=== PATIENT | female | born 2000 | race Caucasian/White ===

== ENCOUNTER → 2019-07-08 | Outpatient (CLI) | payer BC ==
--- NOTE | 2019-07-09 15:31 | MR ---
EXAMINATION TYPE: MR brain wo con DATE OF EXAM: 07/08/2019 COMPARISON: HISTORY: Headaches Standard multiplanar, multisequence MRI departmental protocol Multiplanar, multisequence images of the brain were acquired. Diffusion weighted imaging was performe d. FINDINGS: Ventricles and sulci appear normal. There is no mass effect nor midline shift. There is no sign of intracranial hemorrhage. Pichardo-white matter structures have normal signal pattern. There is no evidence of cerebral edema. Sella turcica appears normal. Brainstem is intact. Corpus callosum appea rs normal. There is no evidence of orbital mass. IMPRESSION: Negative MR scan of the brain.
== END | disposition home or self-care (01) ==
LOC: RADMRIMAIN 20:11
PROVIDERS: ATTEND Family Medicine
DX: R51 Headache (principal)
CPT/HCPCS: 70551

== ENCOUNTER 2023-08-01 16:59 | Observation (INO) | payer BC, OTHER ==
[2023-08-01] MEDS ORDERED: SODIUM CHLORIDE 0.9% 1,000 ML IV STA (17:27)
[2023-08-01] MEDS ORDERED: ONDANSETRON 4 MG/2 ML VIAL IVP STA (17:27)
[2023-08-01] MEDS ORDERED: KETOROLAC 15 MG/ML 1 ML VIAL IVP STA (17:27)
[2023-08-01 18:03] LABS: Basophils % (A) 0 %; Eosinophils # (A) 0.2 k/uL (0-0.7); Eosinophils % (A) 1 %; HCT 50.7 % (34.0-46.0); HGB 18.1 gm/dL (11.4-16.0); Lymphocytes # (A) 0.7 k/uL (1.0-4.8); Lymphocytes % (A) 5 %; MCH 34.6 pg (25.0-35.0); MCHC 35.6 g/dL (31.0-37.0); MCV 97.2 fL (80.0-100.0); Mean Platelet Volume 7.2; Monocytes # (A) 0.3 k/uL (0-1.0); Monocytes % (A) 2 %; Neutrophils # (A) 14.1 k/uL (1.3-7.7); Neutrophils % (A) 92 %; Platelet Count 278 k/uL (150-450); RBC 5.22 m/uL (3.80-5.40); RDW 14.7 % (11.5-15.5); WBC 15.4 k/uL (3.8-10.6)
[2023-08-01 18:13] LABS: ALT 117 U/L (4-34); AST 109 U/L (14-36); African American GFR (CKD) >90 (>60 ml/min/1.73 sqM); Albumin 4.4 g/dL (3.5-5.0); Alkaline Phosphatase 117 U/L (38-126); Amylase 52 U/L (30-110); Anion Gap 13 mmol/L; Blood Urea Nitrogen 7 mg/dL (7-17); Calcium 9.4 mg/dL (8.4-10.2); Carbon Dioxide 24 mmol/L (22-30); Chloride 102 mmol/L (98-107); Glucose 103 mg/dL (74-99); Lipase 44 U/L (23-300); Non-African American GFR(CKD) >90 (>60 ml/min/1.73 sqM); Potassium 4.1 mmol/L (3.5-5.1); Sodium 139 mmol/L (137-145); Total Bilirubin 1.2 mg/dL (0.2-1.3); Total Protein 7.7 g/dL (6.3-8.2)
--- NOTE | 2023-08-01 18:48 | ED ---
Abdominal Pain HPI - General Chief Complaint: Abdominal Pain Stated Complaint: Abd Pain Time Seen by Provider: 08/01/23 17:22 Source: patient Mode of arrival: ambulatory Limitations: no limitations - History of Present Illness Initial Comments: 23-year-old female presenting with chief complaint of abdominal pain. Patient had sudden onset sharp lower abdominal pain that started about an hour prior to arrival. She admits to nausea and has had one episode of vomiting. She denies any history of surgeries. No fever, chills, dysuria, hematuria, vaginal bleeding or discharge, flank pain, diarrhea, constipation. - Related Data Home Medications Medication Instructions Recorded Confirmed No Known Home Medications 08/01/23 08/01/23 Allergies Allergy/AdvReac Type Severity Reaction Status Date / Time Penicillins Allergy Rash/Hives Verified 08/01/23 21:46 Review of Systems ROS Statement: Those systems with pertinent positive or pertinent negative responses have been documented in the HPI. ROS Other: All systems not noted in ROS Statement are negative. Past Medical History Past Medical History: No Reported History History of Any Multi-Drug Resistant Organisms: None Reported Past Surgical History: Adenoidectomy Additional Past Surgical History / Comment(s): wisdom teeth Past Psychological History: No Psychological Hx Reported, Anxiety, Depression Smoking Status: Never smoker Past Alcohol Use History: Occasional Past Drug Use History: Marijuana - Past Family History Father History Unknown: Yes Mother Family Medical History: Hypertension Additional Family Medical History / Comment(s): Thyroid disease General Exam Limitations: no limitations General appearance: alert, in no apparent distress Head exam: Present: atraumatic, normocephalic, normal inspection Eye exam: Present: normal appearance, EOMI Neck exam: Present: normal inspection, full ROM Respiratory exam: Present: normal lung sounds bilaterally. Absent: respiratory distress, wheezes, rales, rhonchi, stridor Cardiovascular Exam: Present: regular rate, normal rhythm, normal heart sounds. Absent: systolic murmur, diastolic murmur, rubs, gallop, clicks GI/Abdominal exam: Present: soft, tenderness. Absent: distended, guarding, rebound, rigid Neurological exam: Present: alert, oriented X3 Psychiatric exam: Present: normal affect, normal mood Skin exam: Present: warm, dry, intact, normal color. Absent: rash Course Vital Signs 08/01/23 08/01/23 08/01/23 17:07 18:48 21:14 Temperature 98.6 F Pulse Rate 92 95 82 Respiratory 18 18 18 Rate Blood Pressure 131/88 129/78 111/73 O2 Sat by Pulse 100 98 97 Oximetry Medical Decision Making - Medical Decision Making Was pt. sent in by a medical professional or institution (HUANG Akbar, INSTRUCTOR DECORATING, urgent care, hospital, or care home...) When possible be specific @ -No Did you speak to anyone other than the patient for history (EMS, parent, family, police, friend...)? What history was obtained from this source @ -No Did you review nursing and triage notes (agree or disagree)? Why? @ -I reviewed and agree with nursing and triage notes Were old charts reviewed (outside hosp., previous admission, EMS record, old EKG, old radiological studies, urgent care reports/EKG's, care home records)? Report findings @ -No old charts were reviewed Differential Diagnosis (chest pain, altered mental status, abdominal pain women, abdominal pain men, vaginal bleeding, weakness, fever, dyspnea, syncope, headache, dizziness, GI bleed, back pain, seizure, CVA, palpatations, mental health, musculoskeletal)? @ -MDM Differential Abdominal Pain Women: Appendicitis, Cholecystitis, diverticulosis, ischemic bowel, pancreatitis, hepatitis, UTI, gastroenteritis, AAA, incarcerated hernia, bowel obstruction, constipation, inflammatory bowel, hepatitis, peptic ulcer disease, splenic infarction, perforated viscus, vulvitis, ovarian torsion, PID, kidney stone, placenta abruption... This is not meant to be an all-inclusive list EKG interpreted by me (3pts min.). @ -As above X-rays interpreted by me (1pt min.). @ -None done CT interpreted by me (1pt min.). @ -Findings consistent with acute appendicitis. No evidence of abscess formation. Cholelithiasis. U/S interpreted by me (1pt. min.). @ -None done What testing was considered but not performed or refused? (CT, X-rays, U/S, labs)? Why? @ -None What meds were considered but not given or refused? Why? @ -None Did you discuss the management of the patient with other professionals (professionals i.e. , HUANG, INSTRUCTOR DECORATING, lab, RT, psych nurse, certified social workers in health care, suppression crew leader, teacher, submarine advisory team watch officer, correctional casework specialist)? Give summary @ -I received a call from Dr. Mercer about this patient, he accepted admission Was smoking cessation discussed for >3mins.? @ -No Was critical care preformed (if so, how long)? @ -No Were there social determinants of health that impacted care today? How? (Homelessness, low income, unemployed, alcoholism, drug addiction, transportation, low edu. Level, literacy, decrease access to med. care, snf, rehab)? @ -No Was there de-escalation of care discussed even if they declined (Discuss DNR or withdrawal of care, Hospice)? DNR status @ -No What co-morbidities impacted this encounter? (DM, HTN, Smoking, COPD, CAD, Cancer, CVA, ARF, Chemo, Hep., AIDS, mental health diagnosis, sleep apnea, morbid obesity)? @ -None Was patient admitted / discharged? Hospital course, mention meds given and route, prescriptions, significant lab abnormalities, going to OR and other pertinent info. @ -23-year-old female presented with chief complaint of lower abdominal pain and vomiting that started today. On physical exam there is right lower quadrant tenderness. WBC 15.4. Lactic 2.1. CT positive for appendicitis. Patient is started on metronidazole and levofloxacin secondary to penicillin ALLERGY. Patient was educated on today's findings and treatment plan. She is admitted to surgery. She is agreeable to this plan. I discussed this case with my attending Dr. Tong Undiagnosed new problem with uncertain prognosis? @ -No Drug Therapy requiring intensive monitoring for toxicity (Heparin, Nitro, Insulin, Cardizem)? @ -No Were any procedures done? @ -No Diagnosis/symptom? @ -Acute appendicitis Acute, or Chronic, or Acute on Chronic? @ -Acute Uncomplicated (without systemic symptoms) or Complicated (systemic symptoms)? @ -Complicated Side effects of treatment? @ -No Exacerbation, Progression, or Severe Exacerbation? @ -No Poses a threat to life or bodily function? How? (Chest pain, [place], [place], pneumonia, PE, COPD, DKA, ARF, appy, cholecystitis, CVA, Diverticulitis, Homicidal, Suicidal, threat to staff... and all critical care pts) @ -Yes - Lab Data Result diagrams: 08/01/23 17:50 08/01/23 17:50 Lab Results 08/01/23 08/01/23 08/01/23 Range/Units 17:50 17:50 17:50 WBC 15.4 H (3.8-10.6) k/uL RBC 5.22 (3.80-5.40) m/uL Hgb 18.1 H (11.4-16.0) gm/dL Hct 50.7 H (34.0-46.0) % MCV 97.2 (80.0-100.0) fL MCH 34.6 (25.0-35.0) pg MCHC 35.6 (31.0-37.0) g/dL RDW 14.7 (11.5-15.5) % Plt Count 278 (150-450) k/uL MPV 7.2 Neutrophils % 92 % Lymphocytes % 5 % Monocytes % 2 % Eosinophils % 1 % Basophils % 0 % Neutrophils # 14.1 H (1.3-7.7) k/uL Lymphocytes # 0.7 L (1.0-4.8) k/uL Monocytes # 0.3 (0-1.0) k/uL Eosinophils # 0.2 (0-0.7) k/uL Basophils # 0.0 (0-0.2) k/uL Sodium 139 (137-145) mmol/L Potassium 4.1 (3.5-5.1) mmol/L Chloride 102 (98-107) mmol/L Carbon Dioxide 24 (22-30) mmol/L Anion Gap 13 mmol/L BUN 7 (7-17) mg/dL Creatinine 0.55 (0.52-1.04) mg/dL Est GFR (CKD-EPI)AfAm >90 (>60 ml/min/1.73 sqM) Est GFR (CKD-EPI)NonAf >90 (>60 ml/min/1.73 sqM) Glucose 103 H (74-99) mg/dL Lactic Ac Sepsis Rflx Plasma Lactic Acid Wilder (0.7-2.0) mmol/L Calcium 9.4 (8.4-10.2) mg/dL Total Bilirubin 1.2 (0.2-1.3) mg/dL AST 109 H (14-36) U/L ALT 117 H (4-34) U/L Alkaline Phosphatase 117 (38-126) U/L Total Protein 7.7 (6.3-8.2) g/dL Albumin 4.4 (3.5-5.0) g/dL Amylase 52 (30-110) U/L Lipase 44 (23-300) U/L Urine Color Yellow Urine Appearance Cloudy H (Clear) Urine pH 6.0 (5.0-8.0) Ur Specific [place] 1.024 (1.001-1.035) Urine Protein Trace H (Negative) Urine Glucose (UA) Negative (Negative) Urine Ketones 2+ H (Negative) Urine Blood Negative (Negative) Urine Nitrite Negative (Negative) Urine Bilirubin Negative (Negative) Urine Urobilinogen 3.0 (<2.0) mg/dL Ur Leukocyte Esterase Negative (Negative) Urine RBC <1 (0-5) /hpf Urine WBC 3 (0-5) /hpf Ur Squamous Epith Cells 5 H (0-4) /hpf Calcium Oxalate Crystal Few H (None) /hpf Urine Bacteria Rare H (None) /hpf Urine Mucus Occasional H (None) /hpf Urine HCG, Qual (Not Detectd) 08/01/23 08/01/23 08/01/23 Range/Units 17:50 17:50 18:41 WBC (3.8-10.6) k/uL RBC (3.80-5.40) m/uL Hgb (11.4-16.0) gm/dL Hct (34.0-46.0) % MCV (80.0-100.0) fL MCH (25.0-35.0) pg MCHC (31.0-37.0) g/dL RDW (11.5-15.5) % Plt Count (150-450) k/uL MPV Neutrophils % % Lymphocytes % % Monocytes % % Eosinophils % % Basophils % % Neutrophils # (1.3-7.7) k/uL Lymphocytes # (1.0-4.8) k/uL Monocytes # (0-1.0) k/uL Eosinophils # (0-0.7) k/uL Basophils # (0-0.2) k/uL Sodium (137-145) mmol/L Potassium (3.5-5.1) mmol/L Chloride (98-107) mmol/L Carbon Dioxide (22-30) mmol/L Anion Gap mmol/L BUN (7-17) mg/dL Creatinine (0.52-1.04) mg/dL Est GFR (CKD-EPI)AfAm (>60 ml/min/1.73 sqM) Est GFR (CKD-EPI)NonAf (>60 ml/min/1.73 sqM) Glucose (74-99) mg/dL Lactic Ac Sepsis Rflx Y Plasma Lactic Acid Wilder 2.1 H* (0.7-2.0) mmol/L Calcium (8.4-10.2) mg/dL Total Bilirubin (0.2-1.3) mg/dL AST (14-36) U/L ALT (4-34) U/L Alkaline Phosphatase (38-126) U/L Total Protein (6.3-8.2) g/dL Albumin (3.5-5.0) g/dL Amylase (30-110) U/L Lipase (23-300) U/L Urine Color Urine Appearance (Clear) Urine pH (5.0-8.0) Ur Specific [place] (1.001-1.035) Urine Protein (Negative) Urine Glucose (UA) (Negative) Urine Ketones (Negative) Urine Blood (Negative) Urine Nitrite (Negative) Urine Bilirubin (Negative) Urine Urobilinogen (<2.0) mg/dL Ur Leukocyte Esterase (Negative) Urine RBC (0-5) /hpf Urine WBC (0-5) /hpf Ur Squamous Epith Cells (0-4) /hpf Calcium Oxalate Crystal (None) /hpf Urine Bacteria (None) /hpf Urine Mucus (None) /hpf Urine HCG, Qual Not Detected (Not Detectd) Disposition Clinical Impression: Acute appendicitis Disposition: ADMITTED IP TO THIS HOSP Condition: Fair Time of Disposition: 20:43
[2023-08-01 19:15] LABS: Appearance,Urine Cloudy (Clear); Bacteria,Urine Rare /hpf; Bilirubin,Urine Negative (Negative); Blood,Urine Negative (Negative); Calcium Oxalate Crystals,Urine Few /hpf; Color,Urine Yellow; Glucose,Urine (UA) Negative (Negative); Ketones,Urine 2+ (Negative); Leukocyte Esterase,Urine Negative (Negative); Mucus,Urine Occasional /hpf; Nitrite,Urine Negative (Negative); Protein,Urine Trace (Negative); RBC,Urine <1 /hpf (0-5); Specific Gravity,Urine 1.024 (1.001-1.035); Squamous Epithelial Cell,Urine 5 /hpf (0-4); WBC,Urine 3 /hpf (0-5)
[2023-08-01] MEDS ORDERED: MORPHINE SULFATE 4 MG/ML SYRINGE IVP STA (19:58)
--- NOTE | 2023-08-01 20:00 | CT ---
EXAMINATION TYPE: CT abdomen pelvis w con CT DLP: 1143.2 mGycm, Automated exposure control for dose reduction was used. DATE OF EXAM: 08/01/2023 7:44 PM COMPARISON: None. CLINICAL INDICATION:Female, 23 years old with history of abdominal pain; Lower mid- Lower right abdom inal pain x 5 hours TECHNIQUE: Axial CT of the abdomen and pelvis. Sagittal and coronal reformats were created on a [employer] workstation. Contrast used:100 cc mL of Isovue 300 with IV Contrast, (none if empty) Oral contrast used: without Oral Contrast (none if empty) FINDINGS: LOWER CHEST: Unremarkable ABDOMEN LIVER: Diffusely low attenuated liver parenchyma. GALLBLADDER AND BILE DUCTS: Cholelithiasis is identified. No evidence of surrounding pericholecystic fluid. PANCREAS: Unremarkable. SPLEEN: Unremarkable. Splenules are noted in the left upper quadrant. ADRENAL GLANDS: Unremarkable. KIDNEYS AND URETERS: No evidence of hydronephrosis or renal calculus. The ureters are unremarkable. PELVIS BLADDER: Unremarkable REPRODUCTIVE: Unremarkable. ABDOMEN & PELVIS STOMACH AND BOWEL: Stomach and duodenum are unremarkable. No evidence of bowel obstruction. The appendix is dilated measuring 9.2 m in diameter. There are subtle periappendiceal inflammatory ch brooks. No evidence of abscess formation is identified in the region. PERITONEUM/RETROPERITONEUM: No evidence of pneumoperitoneum or free fluid. VASCULATURE: No evidence of aortic aneurysm. MUSCULOSKELETAL: No acute osseous abnormalities LYMPH NODES: Prominent right lower quadrant lymph nodes are identified. SOFT TISSUE/ABDOMINAL WALL: Unremarkable IMPRESSION: 1. Findings consistent with acute appendicitis. No evidence of abscess formation. 2. Cholelithiasis. Findings were called to and discussed with the ordering provider Sean on 08/01/[address] Kenny.
[2023-08-01] MEDS ORDERED: SODIUM CHLORIDE 0.9% 1,000 ML IV ONE (20:12)
[2023-08-01] MEDS ORDERED: ONDANSETRON 4 MG/2 ML VIAL IVP PRN (20:41)
[2023-08-01] MEDS ORDERED: NALOXONE 0.4 MG/ML 1 ML VIAL IV PRN (20:41)
[2023-08-01] MEDS ORDERED: LEVOFLOXACIN 750MG-D5W PMX 750 MG in DEXTROSE/WATER 1 150ML.BAG IVPB SCH (21:00)
[2023-08-01] MEDS: metroNIDAZOLE-NS PMX 500 MG in SALINE 1 100ML.BAG IVPB SCH (21:08)
[2023-08-01] MEDS ORDERED: HYDROmorphone 1 MG/ML 1 ML SYRINGE IVP PRN (21:08)
[2023-08-02] MEDS: HEPARIN SODIUM,PORCINE 5,000 UNIT/ML 1 ML VIAL SQ SCH ×3 (00:06→14:44)
[2023-08-02] MEDS: KETOROLAC 15 MG/ML 1 ML VIAL IVP PRN ×2 (00:06→07:53)
[2023-08-02] MEDS: SODIUM CHLORIDE 0.9% 1,000 ML IV SCH ×4 (00:07→20:05)
[2023-08-02] MEDS: metroNIDAZOLE-NS PMX 500 MG in SALINE 1 100ML.BAG IVPB SCH ×2 (05:06→14:30)
[2023-08-02] MEDS: MORPHINE SULFATE 4 MG/ML SYRINGE IV PRN ×2 (05:14→14:47)
[2023-08-02 07:49] LABS: ALT 76 U/L (4-34); AST 59 U/L (14-36); African American GFR (CKD) >90 (>60 ml/min/1.73 sqM); Albumin 2.8 g/dL (3.5-5.0); Alkaline Phosphatase 80 U/L (38-126); Anion Gap 4 mmol/L; Basophils % (A) 0 %; Blood Urea Nitrogen 8 mg/dL (7-17); Carbon Dioxide 25 mmol/L (22-30); Chloride 107 mmol/L (98-107); Eosinophils # (A) 0.1 k/uL (0-0.7); Eosinophils % (A) 1 %; Glucose 89 mg/dL (74-99); HCT 42.9 % (34.0-46.0); Lymphocytes # (A) 1.4 k/uL (1.0-4.8); Lymphocytes % (A) 16 %; MCH 34.2 pg (25.0-35.0); MCHC 34.5 g/dL (31.0-37.0); MCV 99.1 fL (80.0-100.0); Macrocytosis Slight; Mean Platelet Volume 7.5; Monocytes # (A) 0.5 k/uL (0-1.0); Monocytes % (A) 6 %; Neutrophils # (A) 6.6 k/uL (1.3-7.7); Neutrophils % (A) 76 %; Non-African American GFR(CKD) >90 (>60 ml/min/1.73 sqM); Platelet Count 193 k/uL (150-450); Potassium 3.8 mmol/L (3.5-5.1); RBC 4.33 m/uL (3.80-5.40); RDW 14.9 % (11.5-15.5); Sodium 136 mmol/L (137-145); Total Bilirubin 2.1 mg/dL (0.2-1.3); Total Protein 5.4 g/dL (6.3-8.2); WBC 8.7 k/uL (3.8-10.6)
[2023-08-02 07:50] LABS: HGB 14.8 gm/dL (11.4-16.0)
--- NOTE | 2023-08-02 08:05 | P.GSHP ---
History of Present Illness H&P Date: 08/02/23 Chief Complaint: Acute appendicitis 23-year-old female presents to the ER yesterday evening with abdominal pain. Patient states the pain began about 1-2 hours prior to arrival. He describes nausea and vomiting. No fevers. Pain was mostly right sided. Pain was described as being in the lower abdomen. White blood cell count noted to be elevated along with mild elevation of lactic acid and ALT and AST in the 100s. No history of known liver issues. CAT scan was performed and shows gallstones but also shows dilated appendix with inflammatory changes. - Review of Systems Comment: The patient denies any acute changes in vision or hearing, no dysphagia or odynophagia, no chest pain or shortness of breath, no dysuria or hematuria, no headache, no runny nose, no rectal bleeding or melena, no unexplained weight loss Past Medical History Past Medical History: No Reported History History of Any Multi-Drug Resistant Organisms: None Reported Past Surgical History: Adenoidectomy Additional Past Surgical History / Comment(s): wisdom teeth Past Anesthesia/Blood Transfusion Reactions: No Reported Reaction Past Psychological History: No Psychological Hx Reported, Anxiety, Depression Smoking Status: Never smoker Past Alcohol Use History: Occasional Past Drug Use History: Marijuana - Past Family History Father History Unknown: Yes Mother Family Medical History: Hypertension Additional Family Medical History / Comment(s): Thyroid disease Medications and Allergies Home Medications Medication Instructions Recorded Confirmed Type No Known Home Medications 08/01/23 08/01/23 History Allergies Allergy/AdvReac Type Severity Reaction Status Date / Time Penicillins Allergy Rash/Hives Verified 08/01/23 21:46 Surgical - Exam Vital Signs Temp Pulse Resp BP Pulse Ox 98.6 F 92 18 131/88 100 08/01/23 17:07 08/01/23 17:07 08/01/23 17:07 08/01/23 17:07 08/01/23 17:07 Physical exam: General: Well-developed, well-nourished HEENT: Normocephalic, sclerae nonicteric Abdomen: Right lower quadrant tenderness, nondistended Extremities: No edema Neuro: Alert and oriented Results - Labs 08/02/23 07:05 08/02/23 07:05 Abnormal Lab Results - Last 24 Hours (Table) 08/01/23 08/01/23 08/01/23 Range/Units 17:50 17:50 17:50 WBC 15.4 H (3.8-10.6) k/uL Hgb 18.1 H (11.4-16.0) gm/dL Hct 50.7 H (34.0-46.0) % Neutrophils # 14.1 H (1.3-7.7) k/uL Lymphocytes # 0.7 L (1.0-4.8) k/uL Sodium (137-145) mmol/L Glucose 103 H (74-99) mg/dL Plasma Lactic Acid Wilder (0.7-2.0) mmol/L Calcium (8.4-10.2) mg/dL Total Bilirubin (0.2-1.3) mg/dL AST 109 H (14-36) U/L ALT 117 H (4-34) U/L Total Protein (6.3-8.2) g/dL Albumin (3.5-5.0) g/dL Urine Appearance Cloudy H (Clear) Urine Protein Trace H (Negative) Urine Ketones 2+ H (Negative) Ur Squamous Epith Cells 5 H (0-4) /hpf Calcium Oxalate Crystal Few H (None) /hpf Urine Bacteria Rare H (None) /hpf Urine Mucus Occasional H (None) /hpf 08/01/23 08/02/23 Range/Units 17:50 07:05 WBC (3.8-10.6) k/uL Hgb (11.4-16.0) gm/dL Hct (34.0-46.0) % Neutrophils # (1.3-7.7) k/uL Lymphocytes # (1.0-4.8) k/uL Sodium 136 L (137-145) mmol/L Glucose (74-99) mg/dL Plasma Lactic Acid Wilder 2.1 H* (0.7-2.0) mmol/L Calcium 8.0 L (8.4-10.2) mg/dL Total Bilirubin 2.1 H (0.2-1.3) mg/dL AST 59 H (14-36) U/L ALT 76 H (4-34) U/L Total Protein 5.4 L (6.3-8.2) g/dL Albumin 2.8 L (3.5-5.0) g/dL Urine Appearance (Clear) Urine Protein (Negative) Urine Ketones (Negative) Ur Squamous Epith Cells (0-4) /hpf Calcium Oxalate Crystal (None) /hpf Urine Bacteria (None) /hpf Urine Mucus (None) /hpf Diabetes panel 08/01/23 08/02/23 Range/Units 17:50 07:05 Sodium 139 136 L (137-145) mmol/L Potassium 4.1 3.8 (3.5-5.1) mmol/L Chloride 102 107 (98-107) mmol/L Carbon Dioxide 24 25 (22-30) mmol/L BUN 7 8 (7-17) mg/dL Creatinine 0.55 0.55 (0.52-1.04) mg/dL Glucose 103 H 89 (74-99) mg/dL Calcium 9.4 8.0 L (8.4-10.2) mg/dL AST 109 H 59 H (14-36) U/L ALT 117 H 76 H (4-34) U/L Alkaline Phosphatase 117 80 (38-126) U/L Total Protein 7.7 5.4 L (6.3-8.2) g/dL Albumin 4.4 2.8 L (3.5-5.0) g/dL Calcium panel 08/01/23 08/02/23 Range/Units 17:50 07:05 Calcium 9.4 8.0 L (8.4-10.2) mg/dL Albumin 4.4 2.8 L (3.5-5.0) g/dL Pituitary panel 08/01/23 08/02/23 Range/Units 17:50 07:05 Sodium 139 136 L (137-145) mmol/L Potassium 4.1 3.8 (3.5-5.1) mmol/L Chloride 102 107 (98-107) mmol/L Carbon Dioxide 24 25 (22-30) mmol/L BUN 7 8 (7-17) mg/dL Creatinine 0.55 0.55 (0.52-1.04) mg/dL Glucose 103 H 89 (74-99) mg/dL Calcium 9.4 8.0 L (8.4-10.2) mg/dL Adrenal panel 08/01/23 08/02/23 Range/Units 17:50 07:05 Sodium 139 136 L (137-145) mmol/L Potassium 4.1 3.8 (3.5-5.1) mmol/L Chloride 102 107 (98-107) mmol/L Carbon Dioxide 24 25 (22-30) mmol/L BUN 7 8 (7-17) mg/dL Creatinine 0.55 0.55 (0.52-1.04) mg/dL Glucose 103 H 89 (74-99) mg/dL Calcium 9.4 8.0 L (8.4-10.2) mg/dL Total Bilirubin 1.2 2.1 H (0.2-1.3) mg/dL AST 109 H 59 H (14-36) U/L ALT 117 H 76 H (4-34) U/L Alkaline Phosphatase 117 80 (38-126) U/L Total Protein 7.7 5.4 L (6.3-8.2) g/dL Albumin 4.4 2.8 L (3.5-5.0) g/dL Assessment and Plan (1) Acute appendicitis Narrative/Plan: 23-year-old female with acute appendicitis. Patient also with findings of gallstones. Yesterday's transaminases were elevated. This morning's labs were repeated and her transaminases are improved however her bilirubin is 2.1. Discussed with patient that we would evaluate the gallbladder intraoperatively. No plan for cholecystectomy currently unless significant intraoperative findings noted. We'll proceed with laparoscopic appendectomy, possible open at this time. Risks of bleeding, infection, abscess, conversion to an open procedure, bladder ureteral and bowel injury, persistent pain postoperatively possibly leading to future cholecystectomy, hernia all reviewed. Patient understands and wishes to proceed. Current Visit: Yes Status: Acute Code(s): K35.80 - UNSPECIFIED ACUTE APPENDICITIS SNOMED Code(s): 05455579
[2023-08-02] MEDS ORDERED: ROCURONIUM 10 MG/ML (5 ML VIAL) IV ONE (08:19)
[2023-08-02] MEDS ORDERED: MIDAZOLAM 2 MG/2 ML VIAL ONE (08:19)
[2023-08-02] MEDS ORDERED: PROPOFOL 10 MG/ML 20 ML VIAL IV ONE (08:19)
[2023-08-02] MEDS ORDERED: SUCCINYLCHOLINE CHLORIDE 200 MG/10 ML VIAL IV ONE (08:19)
[2023-08-02] MEDS ORDERED: LIDOCAINE 1% INJ 10MG/ML (20 ML MDV) ONE (08:19)
[2023-08-02] MEDS ORDERED: fentaNYL (PF) 50 MCG/ML 2 ML AMP ONE (08:19)
[2023-08-02] MEDS ORDERED: NEOSTIGMINE 1 MG/ML 10 ML VIAL ONE (08:19)
[2023-08-02] MEDS ORDERED: GLYCOPYRROLATE 0.2 MG/ML 2 ML VIAL ONE (08:19)
[2023-08-02] MEDS ORDERED: IV FLUID CONTINUATION 1,000 ML IV ONE (08:23)
[2023-08-02] MEDS ORDERED: BUPIVACAINE (PF) 0.25% 30 ML VIAL SQ ONE (08:41)
[2023-08-02] MEDS ORDERED: ACETAMINOPHEN TAB 325 MG TAB PO PRN (09:14)
--- NOTE | 2023-08-02 09:16 | P.OP ---
Date of Procedure: 08/02/23 Procedure(s) Performed: PREOPERATIVE DIAGNOSIS: Acute appendicitis POSTOPERATIVE DIAGNOSIS: Same PROCEDURE: Laparoscopic appendectomy SURGEON: Ruslan EBL: 5 mL ANESTHESIA: General COMPLICATIONS: None OPERATIVE PROCEDURE: The patient was brought and placed on the operating table in the supine position. The patient was placed under general anesthesia. The abdomen was prepped and draped in the usual sterile fashion. A small vertical infraumbilical incision was made. The fascia was retracted anteriorly with Luis forceps. The Veress needle was advanced into the peritoneal cavity. The saline drop test was normal. Insufflation took place to 15 mmHg. A 5 mm trocar was then placed. An additional 5 mm suprapubic trocar was placed under direct visualization as well as a 12 mm left lower quadrant trocar under direct visualization. The appendix was inspected. It was acutely inflamed. The mesoappendix was dissected. The base of the appendix was divided using a linear 45 mm intestinal stapler. The mesentery itself was divided using LigaSure. The area was then irrigated. No further purulence or bleeding was seen. Both ovaries were inspected and had multiple small cysts noted. A cloudy serous fluid in the cul-de-sac was evacuated. The gallbladder was examined and appeared normal by visualization and palpation. The appendix was brought out of the peritoneal cavity through the left lower quadrant trocar site with an Endo Catch bag. The fascia at the 12 mm site was closed using a cart Mj 0 Vicryl stitch. The skin at all 3 sites was closed using 4-0 Monocryl sutures. Skin glue was then applied. DISPOSITION: Stable to recovery room
[2023-08-02] MEDS ORDERED: ONDANSETRON 4 MG/2 ML VIAL IVP ONE (09:25)
[2023-08-02] MEDS ORDERED: DEXAMETHASONE SOD PHOSPHATE 4 MG/ML 1 ML VIAL IV ONE (09:26)
[2023-08-02] MEDS ORDERED: HYDROmorphone 0.5 MG/0.5 ML SYRINGE IVP ONE ×2 (09:53→10:01)
[2023-08-02] MEDS ORDERED: LACTATED RINGERS 1,000 ML IV ONE (10:06)
[2023-08-02] MEDS: HYDROcodone/APAP 5-325MG 1 EACH TAB PO PRN ×3 (11:29→21:16)
[2023-08-02] MEDS: IBUPROFEN 600 MG TAB PO PRN (20:09)
[2023-08-03] MEDS: HYDROcodone/APAP 5-325MG 1 EACH TAB PO PRN ×2 (00:59→07:56)
[2023-08-03 08:22] VITALS: BP 122/80; PULSE 55; RESP 18; TEMP 97.8
[2023-08-03] MEDS: IBUPROFEN 600 MG TAB PO PRN (09:53)
--- NOTE | 2023-08-03 10:30 | P.DS ---
Providers Date of admission: 08/01/23 20:08 Expected date of discharge: 08/03/23 Attending physician: Tommy Mercer Primary care physician: Stated None - Discharge Diagnosis(es) (1) Acute appendicitis Patient admitted on Thursday through the emergency department. Patient with acute appendicitis. Patient also with finding of gallstones and elevated liver enzymes. Those enzymes have improved. She is doing well today. She never had any right upper quadrant pain. Her right lower quadrant pain is improved. Having mild discomfort at the extraction site left lower quadrant. Patient would like to go home. February discharge. Follow-up one week. Current Visit: Yes Status: Acute Patient Condition at Discharge: Fair Plan - Discharge Summary New Discharge Prescriptions: No Action No Known Home Medications Discharge Medication List No Known Home Medications 08/01/23 [History] Follow up Appointment(s)/Referral(s): Tommy Mercer MD [Medical Doctor] - 1 Week None,Stated [Primary Care Provider] - 1-2 days
--- NOTE | 2023-08-07 10:16 | CDI ---
Documentation Clarification Form Date: 08/07/2023 10:12:58 AM From: Carissa Locke RN, CCDS Email: [email or web address] Admit Date: 08/01/2023 08:08:00 PM Patient Name: Yoon Lewis Visit Number: [id number] Discharge Date: 08/03/2023 11:50:00 AM ATTENTION: The Clinical Documentation Specialists (CDI) and [facility] Coding Staff appreciate your assistance in clarifying documentation. Please respond to the clarification below the line at the bottom and electronically sign. The CDI & [facility] Coding staff will review the response and follow-up if needed. Please note: Queries are made part of the Legal Health Record. If you have any questions, please contact the author of this message via ITS. Dr. Tommy Mercer There is documentation of elevated lactic acid. Additional clarification is requested. History/Risk Factors: 23 year old presented to ER with abdominal pain in the right side. Admitted with acute appendicitis. Clinical Indicators: H&P: "White blood cell count noted to be elevated along with mild elevation of lactic acid and ALT and AST in the 100s." CT A/P: Findings consistent with acute appendicitis. No evidence of abscess formation. Cholelithiasis. 08/01 Labs: lactic acid 2.1; anion gap 13; AST 109; ALT 117 08/01 anion gap 13; 08/02 anion gap 4; AST 59; ALT 76 Discharge summary: "Patient also with finding of gallstones and elevated liver enzymes." Treatment: 2L 0.9 NS IV bolus on 08/01; 0.9 NS @130mL/hr on 08/02; laparoscopic appendectomy Please clarify if there is an additional diagnosis: [x ] Lactic Acidosis [ ] No additional diagnosis [ ] Unable to determine [ ] Other, please specify MTDD
== END 2023-08-03 11:50 | disposition home or self-care (01) ==
LOC: EC 16:59 → INTOOBSV 20:08 → 4FBP 20:08 → UNDODISOB 08-03 11:50
PROVIDERS: ADMIT Surgery; ATTEND Surgery
DX: K35.80 Unspecified acute appendicitis (principal); N83.202 Unspecified ovarian cyst, left side; N83.201 Unspecified ovarian cyst, right side; E87.20 Acidosis, unspecified; F41.9 Anxiety disorder, unspecified; F32.A Depression, unspecified; Z88.0 Allergy status to penicillin
CPT/HCPCS: 96376; 96361; 96365; 96366 ×2; 96367; 96375 ×2; 99285; 36415; 88304; 80053 ×2; 82150; 83605; 83690; 85025 ×2; 81001; 81025; 87040; 74177; 44970; G0378 ×3; J2250; J0330; J2270 ×2; J1644; J1100; J2710; J2405 ×2; J2001; J3010; J1170 ×2; J1956; J1885 ×2; J2704; Q9967; J1836 ×2; J0665; 96374

== ENCOUNTER → 2024-12-09 | Outpatient (CLI) | payer OTHER ==
[2024-12-09] MEDS: LACTATED RINGERS 1,000 ML IV ONE (10:30)
[2024-12-09 11:04] LABS: ALT 18 U/L (4-34); AST 19 U/L (14-36)
[2024-12-09 12:25] VITALS: BP 144/79; PULSE 75; RESP 18; TEMP 97.6
--- NOTE | 2025-01-26 20:18 | P.MSEPDOC ---
Presenting Problems - Arrival Data Date of Arrival on Unit: 12/09/24 Time of Arrival on Unit: 09:56 Mode of Transport: Ambulatory - Complaint OB-Reason for Admission/Chief Complaint: Other Comment: itching hands and feet Medical History - Information : 1 Para: 0 Term: 0 : 0 Abortions: Spontaneous or Elective: 0 Number of Living Children: 0 - Gestational Age Gestational Age by MAX (wks/days): 35 Weeks and 1 Days Review of Systems - Review of Systems Constitutional: No problems Breast: No problems ENT: No problems Cardiovascular: No problems Respiratory: No problems Gastrointestinal: No problems Genitourinary: No problems Musculoskeletal: No problems Neurological: No problems Skin: No problems Vital Signs - Temperature Temperature: 97.6 F Temperature Source: Temporal Artery Scan - Pulse Left Pulse Oximetery Pulse Rate: 75 Pulse Assessment Method: Pulse Oximetry - Respirations Respiratory Rate: 18 Oxygen Delivery Method: Room Air O2 Sat by Pulse Oximetry: 98 - Blood Pressure Right Arm Blood Pressure: 144/79 Blood Pressure Mean: 100 Blood Pressure Source: Automatic Cuff - Comment Vital Signs Comment: Repeat BPs 128/69 and 123/63 Medical Screen Scoring - Uterine Contractions Frequency From (mins): 3 Frequency To (mins): 15 Duration From (seconds): 40 Duration To (seconds): 50 Intensity: Mild Resting: Soft to palpation - Assessment - Baby A Baseline FHR: 125 Heart Rate - NICHD Category: Category II (Indeterminate) NST: Reactive Physician Notification - Physician Notified Physician Notified Date: 12/09/24 Physician Notified Time: 10:22 Physician: Aixa Lewis New Order Received: Yes - Notification Comment Comment: on admission, FHR baseline 165-170 and initial BP 144/79. Repeat BPs all WNL, and after IV fluid bolus, FHR category 1. Liver enzymes also WNL. patient discharged home after labs and IV bolus Maternal Triage Index - Maternal Triage Index Presenting for scheduled procedure w/no complaint: No - Stat/Priority 1 Stat Priority 1: No - Urgent/Priority 2 Urgent Priority 2: Yes Provider Notified: Aixa Lewis Provider Notified Time: 10:23 Criteria Met for Priority 2: FHR baseline 170 on admission - resolved post treatment Disposition - Disposition OB Disposition: Discharge to home Discharge Date: 12/09/24 Discharge Time: 12:05 I agree with the RN Medical Screening Exam: Yes Case reviewed; plan agreed upon as documented in EMR&OBIX.: Yes Diagnosis: RELATED CONDITIONS, UNSPECIFIED, THIRD TRIMESTER
== END ==
LOC: FBPOP 09:56
PROVIDERS: ATTEND Obstetrics & Gynecology Obstetrics
DX: O26.93 Pregnancy related conditions, unspecified, third trimester (principal); Z88.0 Allergy status to penicillin; Z3A.35 35 weeks gestation of pregnancy
CPT/HCPCS: 59025; 82239; 84450; 84460; 96360; 99214

== ENCOUNTER 2025-01-12 13:22 | Inpatient (IN) | payer OTHER ==
[2025-01-12] MEDS: DINOPROSTONE 10 MG INSERT.ER VAGINAL ONE (16:58)
[2025-01-12] MEDS: LACTATED RINGERS 1,000 ML IV SCH (17:06)
[2025-01-12 17:28] LABS: Basophils % (A) 0 %; Eosinophils # (A) 0.1 k/uL (0-0.7); Eosinophils % (A) 1 %; HCT 37.5 % (34.0-46.0); HGB 12.8 gm/dL (11.4-16.0); Lymphocytes # (A) 1.7 k/uL (1.0-4.8); Lymphocytes % (A) 13 %; MCH 29.4 pg (25.0-35.0); MCHC 34.1 g/dL (31.0-37.0); MCV 86.3 fL (80.0-100.0); Mean Platelet Volume 7.8; Monocytes # (A) 0.5 k/uL (0-1.0); Monocytes % (A) 4 %; Neutrophils # (A) 10.4 k/uL (1.3-7.7); Neutrophils % (A) 81 %; Platelet Count 269 k/uL (150-450); RBC 4.34 m/uL (3.80-5.40); RDW 12.5 % (11.5-15.5); WBC 12.8 k/uL (3.8-10.6)
[2025-01-12] MEDS ORDERED: CARBOPROST TROMETHAMINE 250 MCG/ML 1 ML AMP IM PRN (18:08)
[2025-01-12] MEDS ORDERED: TERBUTALINE 1 MG/ML VIAL SQ PRN (18:08)
[2025-01-12] MEDS ORDERED: OXYTOCIN 10 UNIT/ML 1 ML VIAL IM PRN (18:08)
[2025-01-12] MEDS ORDERED: miSOPROStoL 200 MCG TAB RECTAL PRN (18:08)
[2025-01-12] MEDS ORDERED: TRANEXAMIC 1,000 MG/100ML-NACL 1,000 MG in EMPTY BAG 1 BAG IV PRN (18:08)
[2025-01-12] MEDS ORDERED: miSOPROStoL 200 MCG TAB PO PRN (18:08)
[2025-01-12] MEDS ORDERED: OXYTOCIN 30 UNITS/500 ML NS 30 UNIT in SALINE 1 500ML.BAG IV SCH (18:15)
[2025-01-12] MEDS: NALBUPHINE 10 MG/ML (10 ML MDV) IV PRN (23:52)
[2025-01-13] MEDS ORDERED: ROPIVACAINE 5 MG/ML 30 ML VIAL ONE (08:09)
[2025-01-13] MEDS ORDERED: fentaNYL (PF) 50 MCG/ML 5 ML AMP ONE (08:09)
[2025-01-13] MEDS ORDERED: SODIUM CHLORIDE 0.9% 250 ML BAG ONE (08:09)
[2025-01-13] MEDS: OXYTOCIN 30 UNITS/500 ML NS 30 UNIT in SALINE 1 500ML.BAG IV SCH (08:30)
[2025-01-13] MEDS ORDERED: diphenhydrAMINE 50 MG/ML 1 ML VIAL IVP PRN ×4 (18:23→18:27)
[2025-01-13] MEDS ORDERED: LANOLIN CREAM 1 GM TUBE TOPICAL PRN (18:23)
[2025-01-13] MEDS ORDERED: HYDROCORTISONE 2.5% RECTAL CREAM 30 GM TUBE RECTAL PRN (18:23)
[2025-01-13] MEDS ORDERED: SIMETHICONE 80 MG CHEWABLE PO PRN (18:23)
[2025-01-13] MEDS ORDERED: diphenhydrAMINE 50 MG CAP PO PRN ×2 (18:23→18:27)
[2025-01-13] MEDS ORDERED: diphenhydrAMINE 25 MG CAP PO PRN ×2 (18:23→18:27)
[2025-01-13] MEDS ORDERED: ZOLPIDEM 5 MG TAB PO PRN (18:23)
--- NOTE | 2025-01-13 18:30 | P.HPOB ---
History of Present Illness H&P Date: 01/12/25 Chief Complaint: IUP at 40 0/7 weeks This is a 24-year-old 1 para 0 at 40 0/7 weeks that presents to labor and delivery for induction of labor. Patient has been receiving routine care which has been essentially uncomplicated. Patient notes good movement she denies regular contractions denies loss of fluid. On blood work this patient is a blood type of O+, rubella status immune, hepatitis B surface engine negative, HIV negative, RPR is nonreactive, grew beta strep cultures negative. Review of Systems Constitutional: Denies chills, Denies fatigue, Denies fever Ears, nose, mouth and throat: Denies headache Cardiovascular: Reports leg edema Respiratory: Denies dyspnea Gastrointestinal: Denies constipation, Denies diarrhea, Denies nausea, Denies vomiting Genitourinary: Reports Past Medical History Past Medical History: No Reported History History of Any Multi-Drug Resistant Organisms: None Reported Past Surgical History: Adenoidectomy Additional Past Surgical History / Comment(s): wisdom teeth Past Anesthesia/Blood Transfusion Reactions: No Reported Reaction Past Psychological History: No Psychological Hx Reported, Anxiety, Depression Smoking Status: Never smoker Past Alcohol Use History: Occasional Past Drug Use History: Marijuana - Past Family History Father History Unknown: Yes Mother Family Medical History: Hypertension Additional Family Medical History / Comment(s): Thyroid disease Medications and Allergies Home Medications Medication Instructions Recorded Confirmed Type Vit No.179/Iron/Folic 1 each PO DAILY 11/11/24 01/12/25 History [ Tablet] Aspirin [[place] Aspirin EC] 81 mg PO DAILY 12/09/24 01/12/25 History Allergies Allergy/AdvReac Type Severity Reaction Status Date / Time Penicillins Allergy Rash/Hives Verified 12/09/24 10:12 Exam Osteopathic Statement: *. No significant issues noted on an osteopathic structural exam other than those noted in the History and Physical/Consult. Vital Signs Temp Pulse Resp BP Pulse Ox 01/12/25 16:21 97.2 F L 77 20 134/84 98 Intake and Output 01/12/25 01/12/25 01/12/25 06:59 14:59 22:59 Other: Weight 99.79 kg Targeted physical exam is performed this date General Is a well-nourished well- developed female in no acute distress, breathing is nonlabored, heart has a regular rate and rhythm, abdomen is gravid, cervical exam is fingertip/90/-2 station heart tones are noted to be category 1 and she is not shelley. Results Result Diagrams: 01/12/25 16:45 Assessment and Plan (1) Term Current Visit: Yes Status: Acute Code(s): Z34.90 - ENCNTR FOR SUPRVSN OF NORMAL , UNSP, UNSP TRIMESTER SNOMED Code(s): 14018693 Plan: Admit to labor and delivery Cervidil induction of labor, will remove at 5 AM start Pitocin per hospital protocol Nubain/nitrous/epidural as desired Clear liquids as tolerated
--- NOTE | 2025-01-13 18:34 | P.PROBDLV ---
Vaginal Delivery Note - . Vaginal Delivery Note: Date of service 01/13/2025 Findings viable male delivered at 1758, weight of 8 pounds 3 ounces, Apgars of 9 and 9 at 1 and 5 minutes respectively. 24-year-old 1 para 0 that presented to labor and delivery last evening on 01/12 for scheduled Cervidil induction of labor. Patient was admitted and Cervidil was placed without difficulty. Patient was noted to be fingertip/70 at the time of insertion. Patient did become uncomfortable through the night rec eiving Nubain and using nitrous in the morning. Patient was significantly uncomfortable therefore she requested epidural. Epidural was placed without difficulty by the anesthesia department. Once epidural was in place amniotomy was performed and clear fluid was obtained. Patient made slow progress through the morning patient slowly progressing to complete dilation. Once completely dilated she began pushing. With excellent maternal effort she had a normal spontaneous vaginal delivery of a viable male infant at 1758, weight of 8 pounds 3 ounces, Apgars of 9 and 9 at 1 and 5 minutes respectively. Loose nuchal cord was delivered through, reduced at the perineum. After 2-minute delay the umbilical heart was doubly clamped and cut. Placenta was delivered spontaneously intact with a three-vessel cord being noted. Inspection of the patient's vaginal vault revealed a second-degree midline laceration. This was repaired with 3-0 Rapide after instillation of lidocaine. Hemostasis was appreciated after delivery. Patient did have 2 large gushes therefore the uterus was explored and multiple clots were removed. Methergine was given. The uterus did firm. The bladder was drained for approximately 100 cc of clear yellow urine. Estimated blood loss 300 cc Patient and tolerated delivery well and are resting comfortably.
[2025-01-13] MEDS: LIDOCAINE 0.5% (PF) 5 MG/ML (50 ML SDV) SQ PRN (18:45)
[2025-01-13] MEDS: BENZOCAINE/MENTHOL SPRAY 1 GM/SPRAY AEROSOL TOPICAL PRN (18:46)
[2025-01-13] MEDS: METHYLERGONOVINE 0.2 MG/ML 1 ML AMP IM PRN (18:46)
[2025-01-13] MEDS: IBUPROFEN IV 800 MG in SODIUM CHLORIDE 0.9% 250 ML IV ONE (18:52)
[2025-01-13] MEDS: LACTATED RINGERS 1,000 ML IV SCH (23:12)
[2025-01-13] MEDS: SENNOSIDES-DOCUSATE SODIUM 1 EACH TAB PO SCH (23:14)
[2025-01-13] MEDS: PRENATAL VIT-IRON-FOLIC ACID 1 EACH TABLET PO SCH (23:15)
[2025-01-13] MEDS: ROPIVACAINE 225 MG, fentaNYL (PF). 450 MCG in SODIUM CHLORIDE 0.9% 171 ML EPIDURAL ONE (23:15)
[2025-01-13] MEDS: ACETAMINOPHEN TAB 500 MG TAB PO SCH (23:42)
[2025-01-14] MEDS: IBUPROFEN 800 MG TAB PO SCH (03:52)
[2025-01-14 04:31] LABS: Basophils % (A) 0 %; Eosinophils # (A) 0.1 k/uL (0-0.7); Eosinophils % (A) 1 %; HCT 30.1 % (34.0-46.0); HGB 10.1 gm/dL (11.4-16.0); Lymphocytes # (A) 1.5 k/uL (1.0-4.8); Lymphocytes % (A) 8 %; MCH 29.1 pg (25.0-35.0); MCHC 33.5 g/dL (31.0-37.0); MCV 86.9 fL (80.0-100.0); Mean Platelet Volume 7.9; Monocytes # (A) 0.7 k/uL (0-1.0); Monocytes % (A) 4 %; Neutrophils % (A) 87 %; Platelet Count 250 k/uL (150-450); RBC 3.47 m/uL (3.80-5.40); RDW 12.9 % (11.5-15.5); WBC 18.4 k/uL (3.8-10.6)
--- NOTE | 2025-01-14 07:50 | P.DS ---
Providers Date of admission: 01/12/25 15:59 Expected date of discharge: 01/14/25 Attending physician: Aixa Lewis Primary care physician: Stated None - Discharge Diagnosis(es) (1) Normal spontaneous vaginal delivery Current Visit: Yes Status: Acute Hospital Course: Patient is a 24-year-old 1 para 0 admitted at 40-0/7 weeks for cervical ripening with a relatively unfavorable cervix. Her has been uncomplicated and group B strep status is negative. On labor delivery, she had Cervidil placed per protocol and had significant contractions through the night. She had an epidural catheter placed for analgesia and underwent artificial rupture of membranes for clear fluid. She made relatively slow progress through the latent phase of labor and required some degree of manual dilation after which time she dilated fairly continuously through the active phase. She ultimately progressed to complete and then pushed to a normal spontaneous vaginal delivery of a viable 8 pound 3 ounce baby boy with Apgars of 9 at 1 minute and 9 at 5 minutes. Her course was unremarkable with vital signs remaining stable and her temperature was afebrile throughout. She was deemed stable for discharge on day #1 and was discharged home to follow-up in the office in 6 weeks time routinely. Discharge instructions included calling for any significantly increased bleeding or foul-smelling lochia, significantly increased fever or abdominal pain, perineal complaints, breast complaints, or anything else that concerned her. She was additionally instructed to have nothing in the vagina for at least 6 weeks time to include intercourse. She understood her instructions and agrees to follow-up as noted above. Discharge medications included continued vitamins as she has opted to breast-feed. She was otherwise to use [id number] analgesic pain medications. Maternal blood type is O+ and rubella status is immune. Procedures: 1. Cervidil cervical ripening #2. Artificial rupture of membranes #3. Epidural analgesia #4. Normal spontaneous vaginal delivery #5. Repair of perineal laceration Patient Condition at Discharge: Stable Plan - Discharge Summary New Discharge Prescriptions: No Action Vit No.179/Iron/Folic [ Tablet] 1 each PO DAILY Aspirin [[place] Aspirin EC] 81 mg PO DAILY Discharge Medication List Vit No.179/Iron/Folic [ Tablet] 1 each PO DAILY 11/11/24 [History] Aspirin [[place] Aspirin EC] 81 mg PO DAILY 12/09/24 [History] Follow up Appointment(s)/Referral(s): Aixa Lewis DO [Doctor of Osteopathic Medicine] - 6 Weeks Discharge Disposition: HOME SELF-CARE
[2025-01-14 17:23] VITALS: BP 132/82; PULSE 62; RESP 20; TEMP 98.7
== END 2025-01-14 19:55 | disposition home or self-care (01) | DRG 807 ==
LOC: 4FBP 15:59
PROVIDERS: ADMIT Obstetrics & Gynecology Obstetrics; ATTEND Obstetrics & Gynecology Obstetrics
PROC: 0KQM0ZZ Repair Perineum Muscle, Open Approach (ICD-10-PCS; principal; 2025-01-13)
PROC: 10907ZC Drainage of Amniotic Fluid, Therapeutic from Products of Conception, Via Natural or Artificial Opening (ICD-10-PCS; principal; 2025-01-13)
PROC: 10E0XZZ Delivery of Products of Conception, External Approach (ICD-10-PCS; principal; 2025-01-13)
PROC: 3E0P7VZ Introduction of Hormone into Female Reproductive, Via Natural or Artificial Opening (ICD-10-PCS; principal; 2025-01-13)
DX: O69.81X0 Labor and delivery complicated by cord around neck, without compression, not applicable or unspecified (principal); Z37.0 Single live birth; O70.1 Second degree perineal laceration during delivery; Z3A.40 40 weeks gestation of pregnancy; Z79.82 Long term (current) use of aspirin; Z88.0 Allergy status to penicillin
CPT/HCPCS: 85025; 86850; 86900; 86901